=== PATIENT | female | born 1975 | race Caucasian/White ===

== ENCOUNTER 2024-07-27 22:45 | Emergency (ER) | payer OTHER ==
--- OUTSIDE RECORDS SUMMARY | 2024-07-27 22:49 | XMS REPORT | Continuity of Care Document ---
Author Name Unknown Address [address] [facility] [address] [place] [address] [facility] Address [address] [facility] [address] [place] [address] Care Team Providers Care Dispatcher Radioactive Waste Disposal Name Role Phone TORIBIO NATION Primary Care Physician Meena vailable CHRISTEN ROBERTO Attending Clinician Unavailable Christen Roberto MD Attending Clinician [phone] Doctor Unassigned, [place] Attending Clinician U navailable SEAN GARZA Attending Clinician UnavailToribio Spencer MD Attending Clinician + [phone] TORIBIO NATION Attending Clinician Unavai lable [facility] Attending Clinician Unavailable Sean Finch Attending Clinician [phone] [facility] Attending Clinician Unavailable Lab, Ang - Db Attending Clinician Unavailable Pauline Bartlett Attending Clinician [phone] PAULINE LEMUS Attending Clinician Unavailable TERRANCE MARTIN Attending Clinician Unavailable CHRISTEN ROBERTO Admitting Clinician Unavailable SEAN GARZA Admitting Clinician Unavailkristin castillo Payers Payer Name Policy Type Policy Number Effective Date Expirati on Date Source [place] [id number] 2018 00:00:00 Problems Condition Name Condition Details Condition Category Status Onset Date Resolution Date Last Treatment Date Treating Clinician Comments Source Dyslipidem ia Dyslipidem ia Problem Active 07-20 00:00: 00 [facility] Obesity (BMI 30-39.9) Obesity (BMI 30-39.9) Disease Active 9- 00:00: 00 [facility] Elevated AST (SGOT) Elevated AST (SGOT) Disease Active 2017-05 00:00: 00 [facility] Allergies, Adverse Reactions, Alerts Allergy Name Allergy Type Status Severity Reaction(s) Onset Date Inactive Date Treating Clinician Comments Source House Dust Allergy to substanc e Active Other [facility] Lactose Allergy to substanc e Active Other [facility] Milk Allergy to substanc e Active Other [facility] TREE NUT Allergy to substanc e Active Respiratory distress [facility] NO KNOWN ALLERGIE S Drug Class Active [facility] Social History Social Habit Start Date Stop Date Quantity Comments Source History SDOH Alcohol Frequency [facility] History SDOH Alcohol Std Drinks [facility] History SDOH Alcohol Binge [facility] Gender identity [facility] intake 2023-03-06 00:00:00 2023-03-06 00:00:00 Current drinker of alcohol (finding) [facility] Exposure to SARS-CoV-2 (event) 2022-06-09 00:00:00 2022-06-19 15:09:00 Not sure [facility] History of Social function 2022-06-19 00:00:00 2022-06-19 00:00:00 [facility] Tobacco use and exposure 2022-01-25 00:00:00 2022-01-25 00:00:00 Smokeless tobacco non-user [facility] Alcohol Comment 2022-01-25 00:00:00 2022-01-25 00:00:00 social [facility] Sex Ass[birth year] At 1975 00:00:00 1975 00:00:00 [facility] Smoking Status Start Date Stop Date Source Never Smoker [facility] Practice Medications Ordered Medication Name Filled Medication Name Start Date Stop Date Current Medication? Ordering Clinician Indication Dosage Frequency Signature (SIG) Comments Components Source methylPREDN ISolone (MEDROL, ALEXANDER,) 4 mg tablets -03 00:00: 00 01-28 00:00 :00 No [id number] Take by mouth SEE-INSTRU CTIONS. follow package directions [facility] triamcinolo ne acetonide 0.1 % cream 11-18 00:00: 00 01-28 00:00 :00 No [id number] Apply to area(s) 2 (two) times daily. [facility] No known medications 01-25 10:11: 01 No No known medication s [facility] Immunizations Ordered Immunization Name Filled Immunization Name Date Status Comments Source zoster recombinant zoster recombinant Unknown Completed [facility] Tdap Tdap Unknown Completed [facility] Vital Signs Vital Name Observation Time Observation Value Comments S ource Body Weight 2024-07-19 00:00:00 228.6 [lb_av] [facility] Height 2024-07-19 00:00:00 67.5 [in_i] [facility] BP Diastolic 2024-07-19 00:00:00 88 mm[Hg] [facility] BMI (Body Mass Index) 2024-07-19 00:00:00 35.3 kg/m2 [facility] Practice BP Systolic 2024-07-19 00:00:00 145 mm[Hg] [facility] Systolic blood pressure 2023-01-28 20:38:00 133 mm[Hg] [facility] Diastolic blood pressure 2023-01-28 20:38:00 84 mm[Hg] [facility] Heart rate 2023-01-28 20:38:00 76 /min [facility] hospital Body temperature 2023-01-28 20:38:00 36.78 Vannesa [facility] Respiratory rate 2023-01-28 20:38:00 18 /min [facility] Body height 2023-01-28 20:38:00 170.2 cm [facility] Body weight 2023-01-28 20:38:00 112.401 kg [facility] BMI 2023-01-28 20:38:00 38.81 kg/m2 [facility] Systolic blood pressure 2022-11-18 19:36:00 122 mm[Hg] [facility] Diastolic blood pressure 2022-11-18 19:36:00 82 mm[Hg] [facility] Heart rate 2022-11-18 19:36:00 70 /min [facility] Body temperature 2022-11-18 19:36:00 36.83 Vannesa [facility] Body height 2022-11-18 19:36:00 170.2 cm [facility] Body weight 2022-11-18 19:36:00 111.585 kg [facility] BMI 2022-11-18 19:36:00 38.53 kg/m2 [facility] Systolic blood pressure 2022-06-19 21:21:00 137 mm[Hg] [facility] Diastolic blood pressure 2022-06-19 21:21:00 77 mm[Hg] [facility] Heart rate 2022-06-19 21:21:00 86 /min [facility] Body temperature 2022-06-19 21:21:00 36.83 Vannesa [facility] Body height 2022-06-19 21:21:00 172.7 cm [facility] Body weight 2022-06-19 21:21:00 110.36 kg [facility] BMI 2022-06-19 21:21:00 36.99 kg/m2 [facility] Systolic blood pressure 2022-01-25 15:27:00 132 mm[Hg] [facility] Diastolic blood pressure 2022-01-25 15:27:00 77 mm[Hg] [facility] Heart rate 2022-01-25 15:27:00 61 /min [facility] Body temperature 2022-01-25 15:27:00 36.78 Vannesa [facility] Respiratory rate 2022-01-25 15:27:00 18 /min [facility] Body height 2022-01-25 15:27:00 171.5 cm [facility] Body weight 2022-01-25 15:27:00 105.235 kg [facility] BMI 2022-01-25 15:27:00 35.80 kg/m2 [facility] Procedures Procedure Date / Time Performed Performing Clinician Source MAMMO, screening, digital, bilateral 2024-07-19 00:00:00 [place] ASSIGNMENT OF BENEFITS 2023-01-28 20:09:48 Docto r Unassigned, [place] [facility] HEPATIC FUNCTION PANEL ([id number]) (ALB,T.PRO,BILI T,BU/BC,ALT,AST,ALK PHOS) 2022-06-19 22:26:00 Sean Garza [facility] Caesarean Section 1999-02-16 00:00:00 Warren sami [facility] Situ [place] General Surgery Ss [facility] F amily Practice Extraction of [place] Tooth [place] Tubal Ligation [facility] Famil y Practice Encounters Start Date/Time End Date/Time Encounter Type Admission Type Attending Clinicians Care Facility Care Department Encounter ID Source 2024-07-19 00:00:00 2024-07-19 00:00:00 Juancarols Sanchez MD: [id number] [facility] [address], [place] [address] , Ph. [facility] [place] - VM_HOU_[place] [id number] [facility] e 2023-03-06 12:15:46 2023-03-06 23:59:00 Outpatient R CHRISTEN ROBERTO [facility] [id number] [facility] 2023-03-06 12:15:46 2023-03-06 23:59:00 Hospital Encounter Adjoan Christen [facility] 840.114 350.1.13.10 4.2.7.2.686 [id number] [facility] 2023-01-28 15:00:00 2023-01-28 16:20:31 Outpatient R CHRISTEN ROBERTO [facility] [id number] [facility] 2023-01-28 15:00:00 2023-01-28 16:20:31 Office Visit Adjoan Christen [address]114 350.1.13.10 4.2.7.2.686 [id number] [facility] 2023-01-28 00:00:00 2023-01-28 00:00:00 Orders Only Doctor Unassigned, [place] [facility] 1.2840.114 350.1.13.10 4.2.7.2.686 [id number] [facility] 2022-11-18 14:45:00 2022-11-18 15:00:00 Office Visit Toribio Nation [facility] 1.84.114 350.1.13.10 4.2.7.2.686 [id number] [facility] 2022-11-18 14:45:00 2022-11-18 14:50:28 Outpatient TORIBIO DELEON [facility] [id number] [facility] 2022-06-19 16:30:00 2022-06-19 16:45:00 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 [facility] Sean Garza [facility] 1.840.114 350.1.13.10 4.2.7.2.686 [id number] [facility] 2022-06-19 16:00:00 2022-06-19 16:30:00 Office Visit Sean Garza [facility] 1.84.114 350.1.13.10 4.2.7.2.686 [id number] [facility] 2022-06-19 16:00:00 2022-06-19 16:00:00 Outpatient R SEAN GARZA [facility] [id number] [facility] 2022-02-13 14:01:20 2022-02-13 23:59:00 Outpatient CHRISTEN MILLAN [facility] [id number] [facility] 2022-02-13 14:00:00 2022-02-13 23:59:00 Hospital Encounter Christen Roberto [facility] 1.114 350.1.13.10 4.2.7.2.686 [id number] [facility] 2022-01-25 10:00:00 2022-01-25 11:07:47 Outpatient R CHRISTEN ROBERTO [facility] [id number] [facility] 2022-01-25 10:00:00 2022-01-25 11:07:47 [facility] 1.114 350.1.13.10 4.2.7.2.686 [id number] [facility] 2022-01-25 00:00:00 2022-01-25 00:00:00 Orders Only Doctor Unassigned, [place] [facility] 1.114 350.1.13.10 4.2.7.2.686 [id number] [facility] 2021-08-21 16:15:00 2021-08-21 16:15:00 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 [facility] Sean Garza [facility] 1.114 350.1.13.10 4.2.7.2.686 [id number] [facility] 2021-08-21 15:30:00 2021-08-21 15:54:59 Outpatient R SEAN GARZA [facility] [id number] [facility] 2021-08-21 15:30:00 2021-08-21 15:54:59 Office Visit Sean Garza [facility] 1.114 350.1.13.10 4.2.7.2.686 [id number] [facility] 2021-05-25 16:00:35 2021-05-25 23:59:00 Outpatient R SEAN GARZA [facility] [id number] [facility] 2021-05-25 16:00:35 2021-05-25 23:59:00 Hospital Encounter Sean Garza [facility] 1.2840.114 350.1.13.10 4.2.7.2.686 [id number] [facility] 2021-05-22 16:00:00 2021-05-22 16:15:00 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 [facility] Sean Garza [facility] 1.0.114 350.1.13.10 4.2.7.2.686 [id number] [facility] 2021-05-22 15:30:00 2021-05-22 16:12:19 Outpatient R SEAN GARZA [facility] [id number] [facility] 2021-05-22 15:30:00 2021-05-22 16:12:19 Office Visit Sean Garza [facility] 1.0.114 350.1.13.10 4.2.7.2.686 [id number] [facility] 2021-05-22 15:30:00 2021-05-22 16:12:19 Outpatient R SEAN GARZA [facility] [id number] [facility] 2021-05-22 00:00:00 2021-05-22 00:00:00 Orders Only Doctor Unassigned, [place] [facility] 1.0.114 350.1.13.10 4.2.7.2.686 [id number] [facility] 2021-03-09 00:00:00 2021-03-09 00:00:00 Telephone Toribio Nation [facility] 1.0.114 350.1.13.10 4.2.7.2.686 [id number] [facility] 2021-03-08 08:31:57 2021-03-08 08:46:57 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 Lab, Pavan Escamilla [facility] Nation [facility] 1..840.114 350.1.13.10 4.2.7.2.686 [id number] [facility] 2021-03-08 08:30:00 2021-03-08 08:30:00 Outpatient R [facility] [id number] [facility] 2021-03-07 10:27:50 2021-03-07 10:42:50 Office Visit Toribio Nation [facility] 1..840.114 350.1.13.10 4.2.7.2.686 [id number] [facility] 2021-03-07 10:30:00 2021-03-07 10:30:00 Outpatient R TORIBIO NATION [facility] [id number] [facility] 2021-02-27 00:00:00 2021-02-27 00:00:00 [facility] 1..840.114 350.1.13.10 4.2.7.2.686 [id number] [facility] 2021-02-26 10:16:48 2021-02-26 10:42:18 [facility] 1.840.114 350.1.13.10 4.2.7.2.686 [id number] [facility] 2021-02-26 10:30:00 2021-02-26 10:30:00 [facility] [id number] [facility] 2021-01-26 14:42:10 2021-01-26 23:59:00 Hospital Encounter Christen Roberto [facility] 1.2.840.114 350.1.13.10 4.2.7.2.686 [id number] [facility] 2021-01-26 00:00:00 2021-01-26 00:00:00 Outpatient R [facility] [id number] [facility] 2021-01-19 13:18:50 2021-01-19 14:12:24 Office Visit Christen Roberto [facility] 1.2.840.114 350.1.13.10 4.2.7.2.686 [id number] [facility] 2021-01-19 13:30:00 2021-01-19 13:30:00 Outpatient R [facility] [id number] [facility] 2021-01-19 00:00:00 2021-01-19 00:00:00 Orders Only Doctor Unassigned, [place] [id number] 350.1.13.10 4.2.7.2.686 [id number] [facility] 2021-01-19 00:00:00 2021-01-19 00:00:00 Orders Only Doctor Unassigned, [place] [id number] 350.1.13.10 4.2.7.2.686 [id number] [facility] 2021-01-18 15:30:00 2021-01-18 15:30:00 Outpatient R [facility] [id number] [facility] 2020-12-06 15:30:00 2020-12-06 15:30:00 Outpatient R [facility] [id number] [facility] 2020-11-07 16:00:00 2020-11-07 16:00:00 Outpatient TERRANCE REDDY [facility] [id number] [facility] Results Test Description Test Time Test Comments Results Result Co mments Source [facility][id number][facility] (ALB,T.PRO,BILI T,BU/BC,ALT,AST,ALK PHOS)2022-06-19 23:52:35* Test Item Value Reference Range Interpretation Comme nts TOTAL BILI (test code = 0607134427) 0.4 mg/dL 0.1-1.1 BILI UNCON (test code = 5357548403) 0.0 mg/dL 0.1-1.1 L BILI CONJ (test code = 3855770955) 0.0 mg/dL 0.0-0.3 T PROTEIN (test code = 0034742852) 7.7 g/dL 6.3-8.2 ALBUMIN (test code = 5876395063) 4.2 g/dL 3.5-5.0 ALK PHOS (test code = 6849450105) 76 U/L 34-122 ALTv (test code = 1742-6) 28 U/L 5-35 AST(SGOT) (test code = 3916660242) 45 U/L 13-40 H Lab Interpretation (test cod e = 14108-3) Abnormal [facility]
--- NOTE | 2024-07-27 23:11 | EDPHYS ---
Physician Documentation [facility] Name: Whit Victor Age: 48 yrs Sex: Female : 1975 Arrival Date: 07/27/2024 Time: 22:45 Bed DX4 Private MD: ED Physician Tommie Ochoa HPI: 07/27 22:49 This 48 yrs old Female presents to ER via Unassigned with complaints of Rash. sp4 07/28 23:37 Patient presents with acute rash after working in the yard, rashes distributed left sp4 anterior neck, , left arm and right arm. Patient states she came in contact with possibly poison jose outside in the yard. Historical: - Allergies: 07/27 23:59 No Known Allergies; br2 - Immunization history:: Adult Immunizations up to date. - Infectious Disease History:: Denies. - Social history:: Smoking status: Patient denies any tobacco usage or history of. Patient uses alcohol, occasionally. Patient/guardian denies using street drugs. - Family history:: not pertinent. ROS: 07/28 23:37 Constitutional: Negative for fever, chills, and weight loss, positive for acute rash to sp4 left neck left arm and right arm All other systems are negative, Exam: 23:37 Constitutional: This is a well developed, well nourished patient who is awake, alert, sp4 and in no acute distress. Head/Face: Normocephalic, atraumatic. Eyes: Pupils equal round and reactive to light, extra-ocular motions intact. Lids and lashes normal. Conjunctiva and sclera are not injected. Cornea within normal limits. Periorbital areas with no swelling, redness, or edema. ENT: Nares patent. No nasal discharge, no septal abnormalities noted. Tympanic membranes are normal and external auditory canals are clear. Oropharynx with no redness, swelling, or masses, exudates, or evidence of obstruction, uvula midline. Mucous membranes moist. Neck: Trachea midline, no thyromegaly or masses palpated, and no cervical lymphadenopathy. Supple, full range of motion without nuchal rigidity, or vertebral point tenderness. Chest/axilla: Normal chest wall appearance and motion. Nontender with no deformity. No lesions are appreciated. Cardiovascular: Regular rate and rhythm with a normal S1 and S2. No gallops, murmurs, or rubs. Normal PMI, no JVD. No pulse deficits. Respiratory: Lungs have equal breath sounds bilaterally, clear to auscultation and percussion. No rales, rhonchi or wheezes noted. No increased work of breathing, no retractions or nasal flaring. Abdomen/GI: Soft, with normal bowel sounds. No distension or tympany. No guarding or rebound. No evidence of tenderness throughout. Back: No spinal tenderness. No costovertebral tenderness. Skin: Warm, dry with normal turgor. Normal color with no rashes, no lesions, and no evidence of cellulitis. MS/ Extremity: Pulses equal, no cyanosis. Neurovascular intact. Full, normal range of motion. Neuro: Awake and alert, GCS 15, oriented to person, place, time, and situation. Cranial nerves II-XII grossly intact. Motor strength 5/5 in all extremities. Sensory grossly intact. Psych: Awake, alert, with orientation to person, place and time. Behavior, mood, and affect are within normal limits Vital Signs: 07/27 23:15 BP 145 / 84; Pulse 59; Resp 18; Temp 97.1(TE); Pulse Ox 98% on R/A; Weight 104.33 kg; br2 Height 5 ft. 7 in. ; Pain 0/10; 23:15 Body Mass Index 36.02 (104.33 kg, 170.18 cm) br2 23:15 Pain Scale: Adult br2 Magdi Coma Score: 07/28 23:37 Eye Response: spontaneous(4). Motor Response: obeys commands(6). Verbal Response: sp4 oriented(5). Total: 15. MDM: 07/27 22:50 Medical Screening Exam initiated sp4 07/28 23:37 Differential diagnosis: impetigo, varicella, allergic reaction, parasite infection. sp4 Data reviewed: vital signs, nurses notes, old medical records. Consideration of Admission/Observation Escalation of care including admission/observation considered. ED course: Stable for discharge home with p.o. prednisone. Administered Medications: 07/27 23:32 Drug: MethylPREDNISolone Sodium Succinate IM 125 mg IM once Route: IM; Site: right br2 gluteus; 23:33 Follow up: Response: Medication administered at discharge. br2 23:32 Drug: Famotidine PO 20 mg PO once Route: PO; br2 23:33 Follow up: Response: Medication administered at discharge. br2 Disposition: 07/28 23:40 Chart complete. sp4 Disposition Summary: 07/27/24 23:10 Discharge Ordered Notes: Location: Home sp4 Problem: new sp4 Symptoms: have improved sp4 Condition: Stable sp4 Diagnosis - Allergic contact dermatitis due to other agents sp4 - Acute allergic dermatitis secondary to poison jose sp4 Followup: sp4 - With: Private Physician - When: 7 - 10 days - Reason: Recheck today's complaints Discharge Instructions: - Discharge Summary Sheet sp4 - Contact Dermatitis sp4 Forms: - Patient Portal Instructions sp4 Prescriptions: - Prednisone 20 mg Oral Tablet - take 2 tablets ORAL route once daily for 5 days; 10 tablet; Refills: 0, Product sp4 Selection Permitted Signatures: Tommie Ochoa MD MD sp4 Corina Martin RN RN br2
[2024-07-27] MEDS ORDERED: FAMOTIDINE 20 MG TAB ONE (23:23)
[2024-07-27] MEDS ORDERED: METHYLPREDNISOLONE 125 MG INJ ONE (23:23)
--- NOTE | 2024-07-28 00:06 | ER ---
Nurse's Notes [facility] Name: Whit Victor Age: 48 yrs Sex: Female : 1975 Arrival Date: 07/27/2024 Time: 22:45 Bed DX4 Private MD: Diagnosis: Allergic contact dermatitis due to other agents;Acute allergic dermatitis secondary to poison jose Presentation: 07/27 23:15 Chief complaint: Patient states: PT C/O RASH TO LEFT SIDE OF FACE AND NECK FOR 1-2 br2 DAYS. C/O ITCHING. Coronavirus screen: Client denies travel out of the [place] in the last 14 days. Ebola Screen: Patient denies exposure to infectious person. Initial Sepsis Screen: Does the patient meet any 2 criteria? No. Patient's initial sepsis screen is negative. Does the patient have a suspected source of infection? No. Patient's initial sepsis screen is negative. Risk Assessment: Do you want to hurt yourself or someone else? Patient reports no desire to harm self or others. Onset of symptoms was July 25, 2024. 23:15 Method Of Arrival: Ambulatory br2 23:15 Acuity: STEPHANIE 5 br2 Triage Assessment: 23:59 General: Appears uncomfortable, Behavior is calm, cooperative. Pain: Denies pain. br2 Historical: - Allergies: 23:59 No Known Allergies; br2 - Immunization history:: Adult Immunizations up to date. - Infectious Disease History:: Denies. - Social history:: Smoking status: Patient denies any tobacco usage or history of. Patient uses alcohol, occasionally. Patient/guardian denies using street drugs. - Family history:: not pertinent. Screenin:32 [facility] ED Fall Risk Assessment (Adult) History of falling in the last 3 months, br2 including since admission No falls in past 3 months (0 pts) Confusion or Disorientation No (0 pts) Intoxicated or Sedated No (0 pts) Impaired Gait No (0 pts) Mobility Assist Device Used No (0 pt) Altered Elimination No (0 pt) Score/Fall Risk Level 0 - 2 = Low Risk Oriented to surroundings. Abuse screen: Denies threats or abuse. Denies injuries from another. Nutritional screening: No deficits noted. Tuberculosis screening: No symptoms or risk factors identified. Assessment: 07/28 00:02 Reassessment: Reassessment: SEE TRIAGE ASSESSMENT. br2 Vital Signs: 07/27 23:15 BP 145 / 84; Pulse 59; Resp 18; Temp 97.1(TE); Pulse Ox 98% on R/A; Weight 104.33 kg; br2 Height 5 ft. 7 in. ; Pain 0/10; 23:15 Body Mass Index 36.02 (104.33 kg, 170.18 cm) br2 23:15 Pain Scale: Adult br2 Magdi Coma Score: 07/28 23:37 Eye Response: spontaneous(4). Motor Response: obeys commands(6). Verbal Response: sp4 oriented(5). Total: 15. ED Course: 07/27 22:48 Patient arrived in ED. im 22:49 Tommie Ochoa MD is Attending Physician. sp4 23:07 Acacia Salomon, RN is Primary Nurse. me1 23:31 No provider procedures requiring assistance completed. Patient did not have IV access br2 during this emergency room visit. 23:32 Patient has correct armband on for positive identification. Provided Education on: PLAN br2 OF CARE. 23:59 Triage completed. br2 23:59 Arm band placed on right wrist. br2 Administered Medications: 23:32 Drug: MethylPREDNISolone Sodium Succinate IM 125 mg IM once Route: IM; Site: right br2 gluteus; 23:33 Follow up: Response: Medication administered at discharge. br2 23:32 Drug: Famotidine PO 20 mg PO once Route: PO; br2 23:33 Follow up: Response: Medication administered at discharge. br2 Medication: 07/28 00:02 VIS not applicable for this client. br2 Outcome: 07/27 23:10 Discharge ordered by . sp4 23:31 Discharged to home ambulatory, br2 23:31 Condition: good 23:31 Discharge instructions given to patient, Instructed on discharge instructions, Demonstrated understanding of instructions, follow-up care, medications, Prescriptions given X 1, 23:32 Patient left the ED. br2 Signatures: Tommie Ochoa MD MD sp4 Lilliana Shi Acacia Salomon, RN RN me1 Corina Martin RN RN br2 Corrections: (The following items were deleted from the chart) 07/28 00:07 00:05 Patient left the ED. br2 br2
[2024-07-28 00:27] VITALS: BP 145/84; TEMP 97.1; O2SAT 98
== END 2024-07-28 00:05 | disposition home or self-care (01) ==
LOC: ER 22:45
DX: L23.7 Allergic contact dermatitis due to plants, except food (principal)
CPT/HCPCS: 96372; 99284; J2919